=== PATIENT | male | born 1995 | race Caucasian/White ===

== ENCOUNTER 2019-12-15 14:51 | Emergency (ER) | payer OTHER ==
[~2019-12-15] VITALS: Ht 175.3 cm; Wt 74.8 kg
[2019-12-15] MEDS ORDERED: Augmentin 875-1 EACH PO (15:08)
== END 2019-12-15 15:10 | disposition home or self-care (01) ==
LOC: ER 14:51
DX: H66.92 Otitis media, unspecified, left ear (principal); F17.210 Nicotine dependence, cigarettes, uncomplicated
CPT/HCPCS: 99282

== ENCOUNTER 2023-09-14 13:28 | Emergency (ER) | payer OTHER ==
[~2023-09-14] VITALS: Ht 175.3 cm; Wt 74.8 kg
[~2023-09-14 13:28] MED LIST: Augmentin 875-1 EACH PO
[2023-09-14 14:11] VITALS: BP 141/86
== END 2023-09-14 15:06 | disposition home or self-care (01) ==
LOC: ER 13:28
DX: S43.421A Sprain of right rotator cuff capsule, initial encounter (principal); F17.210 Nicotine dependence, cigarettes, uncomplicated; V18.4XXA Pedal cycle driver injured in noncollision transport accident in traffic accident, initial encounter
CPT/HCPCS: 73030; 99283-25